=== PATIENT | male | born 1985 | race Caucasian/White ===

== ENCOUNTER 2017-07-05 20:32 | Emergency (ER) | END 2017-07-05 23:00 | disposition home or self-care (01) ==

== ENCOUNTER 2017-07-19 19:41 | Emergency (ER) | END 2017-07-19 23:17 | disposition left against medical advice (07) ==

== ENCOUNTER 2017-07-20 08:27 | Emergency (ER) | END 2017-07-20 11:04 | disposition home or self-care (01) ==

== ENCOUNTER 2017-08-11 20:12 | Emergency (ER) | END 2017-08-12 00:08 | disposition home or self-care (01) ==

== ENCOUNTER 2018-02-13 08:35 | Emergency (ER) | END 2018-02-13 09:27 | disposition home or self-care (01) ==

== ENCOUNTER 2018-02-21 17:42 | Emergency (ER) | END 2018-02-21 21:15 | disposition left against medical advice (07) ==